=== PATIENT | male | born 1975 | race African-American/Black ===

== ENCOUNTER → 2019-04-23 | Outpatient (CLI) | payer OTHER ==
[~2019-04-23] MED LIST: ASPI-891 PO; ATOR40TA69 PO; FURO20TA6 PO; LISI10TA7 PO; METO25 PO; OMEP40CA37 PO
== END | disposition home or self-care (01) ==
LOC: RAH 10:22
PROVIDERS: ATTEND Internal Medicine Cardiovascular Disease
DX: I11.9 Hypertensive heart disease without heart failure (principal); I31.3 Pericardial effusion (noninflammatory)
CPT/HCPCS: 93306

== ENCOUNTER 2023-05-18 15:50 | Inpatient (IN) | payer OTHER ==
[~2023-05-18] VITALS: Ht 177.8 cm; Wt 125.6 kg
[~2023-05-18 15:50] MED LIST changes: +LISI10TA24 PO; -LISI10TA7 PO; +OMEP40CA21 PO; -OMEP40CA37 PO
[2023-05-18 16:30] VITALS: BP 130/76; PULSE 95; RESP 18
[2023-05-18] MEDS ORDERED: NITROGLYCERIN 0.4 MG SL TAB SL PRN (16:30)
[2023-05-18] MEDS ORDERED: ACETAMINOPHEN 500 MG TABLET PO PRN (17:00)
[2023-05-18 17:31] LABS: BASOPHILS # (AUTO) 0.07 K/uL (0.00-0.20); BASOPHILS % (AUTO) 0.7 % (0.0-5.0); EOSINOPHILS # (AUTO) 0.03 K/uL (0.00-0.70); EOSINOPHILS % (AUTO) 0.3 % (0.0-8.0); HEMATOCRIT 36.3 % (42-54); IMMATURE GRANULOCYTE ABSOLUTE 0.02 K/uL (0-1); LYMPHOCYTES # (AUTO) 2.2 K/uL (1.0-4.8); LYMPHOCYTES % (AUTO) 22.5 % (21.0-51.0); MEAN CORPUSCULAR HEMOGLOBIN 20.5 pg (27.0-33.0); MEAN CORPUSCULAR HGB CONC 28.1 g/dL (32.0-36.0); MEAN CORPUSCULAR VOLUME 72.9 fL (79-99); MONOCYTES # (AUTO) 0.6 K/uL (0.1-1.0); MONOCYTES % (AUTO) 6.6 % (3.0-13.0); NEUTROPHILS # (AUTO) 6.8 K/uL (1.8-7.7); NEUTROPHILS % (AUTO) 69.7 % (40.0-77.0); PLATELET COUNT (AUTO) 273 K/uL (130-400); RED BLOOD CELL COUNT(AUTO) 4.98 MIL/uL (4.50-6.20); RED CELL DISTRIBUTION WIDTH 16.9 % (11.0-15.5); WHITE BLOOD COUNT (AUTO) 9.7 K/uL (4.8-10.8)
[2023-05-18 17:45] LABS: PROTHROMBIN TIME 11.6 SEC (9.6-11.6)
[2023-05-18 17:46] LABS: PARTIAL THROMBOPLASTIN TIME 27.1 SEC (26.3-35.5)
[2023-05-18 17:54] LABS: ALBUMIN 3.5 g/dL (3.5-5.0); BILIRUBIN,TOTAL 0.6 mg/dL (0.2-1.0); CREATININE 1.4 mg/dL (0.5-1.5); MAGNESIUM 2.1 mg/dL (1.80-2.40); POTASSIUM 3.6 mmol/L (3.5-5.1); TOTAL PROTEIN, SERUM 7.3 g/dL (6.0-8.3)
[2023-05-18 19:59] VITALS: BP 144/77; PULSE 80; RESP 18
[2023-05-18 20:03] VITALS: O2SAT 99
[2023-05-18] MEDS: FAMOTIDINE 20MG VIAL IV SCH (20:29)
[2023-05-18 23:13] VITALS: BP 130/74; PULSE 72; RESP 20
[2023-05-19] VITALS (13 sets, daily range): BP systolic 117–154; BP diastolic 59–87; PULSE 68–97; RESP 18–20; O2SAT 96–98
[2023-05-19 05:42] LABS: BASOPHILS # (AUTO) 0.06 K/uL (0.00-0.20); BASOPHILS % (AUTO) 0.8 % (0.0-5.0); EOSINOPHILS # (AUTO) 0.13 K/uL (0.00-0.70); EOSINOPHILS % (AUTO) 1.7 % (0.0-8.0); HEMATOCRIT 35.8 % (42-54); IMMATURE GRANULOCYTE ABSOLUTE 0.03 K/uL (0-1); LYMPHOCYTES # (AUTO) 2.4 K/uL (1.0-4.8); MEAN CORPUSCULAR HEMOGLOBIN 20.5 pg (27.0-33.0); MEAN CORPUSCULAR HGB CONC 28.2 g/dL (32.0-36.0); MEAN CORPUSCULAR VOLUME 72.6 fL (79-99); MONOCYTES # (AUTO) 0.7 K/uL (0.1-1.0); NEUTROPHILS # (AUTO) 4.3 K/uL (1.8-7.7); NEUTROPHILS % (AUTO) 57.1 % (40.0-77.0); PLATELET COUNT (AUTO) 244 K/uL (130-400); RED BLOOD CELL COUNT(AUTO) 4.93 MIL/uL (4.50-6.20); WHITE BLOOD COUNT (AUTO) 7.6 K/uL (4.8-10.8)
[2023-05-19 05:48] LABS: INR 0.97 (0.85-1.15); PROTHROMBIN TIME 11.3 SEC (9.6-11.6)
[2023-05-19 05:56] LABS: CREATININE 1.3 mg/dL (0.5-1.5); POTASSIUM 3.6 mmol/L (3.5-5.1)
[2023-05-19] MEDS ORDERED: MIDAZOLAM HCL 1 MG/ML 2ML VIAL ONE ×2 (08:12→09:15)
[2023-05-19] MEDS ORDERED: FENTANYL CITRATE PF 50 MCG/1 ML 2ML VIAL ONE (08:12)
[2023-05-19] MEDS ORDERED: LIDOCAINE HCL 400MG/20ML VIAL ONE (08:12)
[2023-05-19] MEDS ORDERED: IOHEXOL 350 MG/ML 100ML INFUS..BTL IV ONE (08:12)
[2023-05-19] MEDS ORDERED: VERAPAMIL HCL 2.5 MG/ML VIAL ONE (08:13)
[2023-05-19] MEDS ORDERED: NITROGLYCERIN 50MG VIAL ONE (08:13)
[2023-05-19] MEDS ORDERED: HEPARIN 10,000 UNIT/10ML (1,000 UNIT/ML) VIAL ONE (08:13)
[2023-05-19] MEDS: ASPIRIN 81MG CHEW TAB PO SCH ×2 (08:16→08:33)
[2023-05-19] MEDS ORDERED: SOLU-MEDROL 125MG VIAL ONE (08:24)
[2023-05-19] MEDS ORDERED: DiphenhydrAMINE HCL 50 MG/ML VIAL ONE (08:24)
[2023-05-19] MEDS: CLOPIDOGREL 75MG TAB PO SCH (08:31)
[2023-05-19] MEDS: METOPROLOL SUCCINATE 25 MG TAB.SR.24H PO SCH (08:32)
[2023-05-19] MEDS: ENOXAPARIN SODIUM 80 MG/0.8 ML SQ SCH ×2 (08:36→21:06)
[2023-05-19] MEDS ORDERED: IOHEXOL-350 75 ML VIAL IV ONE (10:00)
[2023-05-19] MEDS ORDERED: IOHEXOL-350 50ML VIAL IV ONE (10:20)
[2023-05-19] MEDS ORDERED: HYDRALAZINE 20MG/ML VIAL ONE (10:28)
[2023-05-19] MEDS ORDERED: GLUCAGON 1MG KIT 1 MG ML IM PRN (11:00)
[2023-05-19] MEDS ORDERED: 0.9%NACL 1000ML 1,000 ML IV SCH (11:00)
[2023-05-19] MEDS ORDERED: DEXTROSE 50%-WATER 50 ML DISP.SYRIN IV PRN (11:00)
[2023-05-19] MEDS: FAMOTIDINE 20MG VIAL IV SCH ×2 (11:24→21:01)
[2023-05-20] VITALS (8 sets, daily range): BP systolic 95–131; BP diastolic 62–68; PULSE 81–103; RESP 20–24; O2SAT 97
[2023-05-20] MEDS ORDERED: SOLU-MEDROL 125MG VIAL IVP ONE (07:00)
[2023-05-20] MEDS ORDERED: DiphenhydrAMINE HCL 50 MG/ML VIAL IV ONE (07:00)
[2023-05-20 08:14] LABS: HEMATOCRIT 34.8 % (42-54); MEAN CORPUSCULAR HEMOGLOBIN 20.6 pg (27.0-33.0); MEAN CORPUSCULAR HGB CONC 28.7 g/dL (32.0-36.0); MEAN CORPUSCULAR VOLUME 71.6 fL (79-99); RED BLOOD CELL COUNT(AUTO) 4.86 MIL/uL (4.50-6.20); WHITE BLOOD COUNT (AUTO) 17.6 K/uL (4.8-10.8)
[2023-05-20 08:30] LABS: ALBUMIN 3.2 g/dL (3.5-5.0); BILIRUBIN,TOTAL 0.4 mg/dL (0.2-1.0); CREATININE 1.2 mg/dL (0.5-1.5); POTASSIUM 3.7 mmol/L (3.5-5.1); TOTAL PROTEIN, SERUM 7.1 g/dL (6.0-8.3)
[2023-05-20] MEDS: METOPROLOL SUCCINATE 25 MG TAB.SR.24H PO SCH (09:25)
[2023-05-20] MEDS: ASPIRIN 81MG CHEW TAB PO SCH (09:26)
[2023-05-20] MEDS: CLOPIDOGREL 75MG TAB PO SCH (09:26)
[2023-05-20] MEDS: ENOXAPARIN SODIUM 80 MG/0.8 ML SQ SCH ×2 (09:27→20:51)
[2023-05-20] MEDS: FAMOTIDINE 20MG VIAL IV SCH ×2 (09:27→20:48)
[2023-05-20] MEDS ORDERED: IOHEXOL 350 MG/ML 100ML INFUS..BTL IV ONE (10:47)
[2023-05-20] MEDS ORDERED: METOPROLOL TARTRATE 1 MG/ML 5ML VIAL IV ONE (11:15)
[2023-05-20 16:23] LABS: APPEARANCE,URINE CLEAR (CLEAR); BILIRUBIN,URINE NEGATIVE (NEGATIVE); COLOR,URINE LIGHT-YELLOW (YELLOW); GLUCOSE, URINE (UA) 30 mg/dL (NEGATIVE); KETONES,URINE NEGATIVE (NEGATIVE); LEUKOCYTE ESTERASE ,URINE NEGATIVE Leu/uL (NEGATIVE); NITRATE,URINE NEGATIVE (NEGATIVE); OCCULT BLOOD,URINE NEGATIVE (NEGATIVE); PROTEIN,URINE 30 mg/dL (NEGATIVE); UROBILINOGEN,URINE 0.2 mg/dL (0.2-1.0)
[2023-05-20 16:27] LABS: ADD UA MICROSCOPIC YES; AMPHET/METH SCREEN,URINE NEGATIVE (NEGATIVE); BARBITURATE SCREEN, URINE NEGATIVE (NEGATIVE); BENZODIAZEPINES SCREEN,URINE POSITIVE (NEGATIVE); CANNABINOID SCREEN,URINE NEGATIVE (NEGATIVE); COCAINE SCREEN,URINE NEGATIVE (NEGATIVE); OPIATE SCREEN,URINE NEGATIVE (NEGATIVE); PHENCYCLIDINE SCREEN,URINE NEGATIVE (NEGATIVE)
[2023-05-20 17:00] LABS: RBC,URINE 0-1 /HPF (0-1); SQUAMOUS EPITHELIAL CELL,UR RARE /HPF (0-2); WBC,URINE 0-1 /HPF (0-1)
[2023-05-20] MEDS: CEFTRIAXONE 1G VIAL IVPB SCH (20:51)
[2023-05-20] MEDS: MORPHINE 2 MG SYG IVP PRN (20:58)
[2023-05-21] VITALS (15 sets, daily range): BP systolic 103–160; BP diastolic 44–95; PULSE 65–83; RESP 20; O2SAT 97
[2023-05-21 03:48] LABS: HEMATOCRIT 34.4 % (42-54); MEAN CORPUSCULAR HEMOGLOBIN 20.3 pg (27.0-33.0); MEAN CORPUSCULAR HGB CONC 27.9 g/dL (32.0-36.0); MEAN CORPUSCULAR VOLUME 72.6 fL (79-99); RED BLOOD CELL COUNT(AUTO) 4.74 MIL/uL (4.50-6.20); WHITE BLOOD COUNT (AUTO) 20.7 K/uL (4.8-10.8)
[2023-05-21 04:02] LABS: CREATININE 1.3 mg/dL (0.5-1.5); MAGNESIUM 2.2 mg/dL (1.80-2.40); POTASSIUM 3.7 mmol/L (3.5-5.1)
[2023-05-21] MEDS: METOPROLOL SUCCINATE 25 MG TAB.SR.24H PO SCH (07:59)
[2023-05-21 09:23] LABS: % IRON SATURATION 2.8 % (30-44)
[2023-05-21] MEDS ORDERED: COMPOUND IV REFRIGERATED 1 EACH IVSOLN MISC PRN (09:30)
[2023-05-21] MEDS ORDERED: COMPOUND IV MISC 1 EACH IVSOLN MISC PRN (09:30)
[2023-05-21 09:57] LABS: HEMOGLOBIN A1C 6.6 % (4.0-6.0)
[2023-05-21] MEDS: IRON SUCROSE COMPLEX 300 MG in 0.9% NACL 250ML 250 ML IV SCH (10:53)
[2023-05-21] MEDS ORDERED: DiphenhydrAMINE HCL 50 MG/ML VIAL IV ONE (11:00)
[2023-05-21] MEDS: FAMOTIDINE 20MG VIAL IV SCH (11:00)
[2023-05-21] MEDS ORDERED: SOLU-MEDROL 125MG VIAL IVP ONE (11:00)
[2023-05-21] MEDS ORDERED: FAMOTIDINE 20MG VIAL IV ONE (12:00)
[2023-05-21] MEDS ORDERED: LIDOCAINE HCL 400MG/20ML VIAL ONE (13:32)
[2023-05-21] MEDS ORDERED: FENTANYL CITRATE PF 50 MCG/1 ML 2ML VIAL ONE ×2 (13:32→16:04)
[2023-05-21] MEDS ORDERED: BIVALIRUDIN 250 MG/VIAL IV ONE (13:32)
[2023-05-21] MEDS ORDERED: MIDAZOLAM HCL 1 MG/ML 2ML VIAL ONE (13:33)
[2023-05-21] MEDS ORDERED: NITROGLYCERIN 50MG VIAL ONE (13:33)
[2023-05-21] MEDS ORDERED: HEPARIN 10,000 UNIT/10ML (1,000 UNIT/ML) VIAL ONE (13:33)
[2023-05-21] MEDS ORDERED: IOHEXOL 350 MG/ML 100ML INFUS..BTL IV ONE ×2 (13:33→15:30)
[2023-05-21] MEDS ORDERED: 0.9%NACL 1000ML 1,000 ML IV SCH (16:30)
[2023-05-21] MEDS: ASPIRIN 81MG CHEW TAB PO SCH (17:18)
[2023-05-21] MEDS: CLOPIDOGREL 75MG TAB PO SCH (17:18)
[2023-05-21] MEDS: CEFTRIAXONE 1G VIAL IVPB SCH (17:18)
[2023-05-21] MEDS: MORPHINE 2 MG SYG IVP PRN (17:20)
[2023-05-22 03:45] VITALS: BP 148/79; PULSE 77; RESP 21
[2023-05-22 05:12] LABS: HEMATOCRIT 33.3 % (42-54); MEAN CORPUSCULAR HEMOGLOBIN 20.4 pg (27.0-33.0); MEAN CORPUSCULAR HGB CONC 28.2 g/dL (32.0-36.0); MEAN CORPUSCULAR VOLUME 72.4 fL (79-99); NUCLEATED RED BLOOD CELLS 0.5 % (0.0-0.19); RED BLOOD CELL COUNT(AUTO) 4.6 MIL/uL (4.50-6.20); RED CELL DISTRIBUTION WIDTH 17.1 % (11.0-15.5); WHITE BLOOD COUNT (AUTO) 17.6 K/uL (4.8-10.8)
[2023-05-22 05:32] LABS: ALBUMIN 2.9 g/dL (3.5-5.0); BILIRUBIN,TOTAL 0.2 mg/dL (0.2-1.0); CREATININE 1.2 mg/dL (0.5-1.5); POTASSIUM 3.8 mmol/L (3.5-5.1); TOTAL PROTEIN, SERUM 6.7 g/dL (6.0-8.3)
[2023-05-22 07:00] VITALS: O2SAT 98
[2023-05-22 08:13] VITALS: BP 109/62; PULSE 94; RESP 20
[2023-05-22] MEDS: IRON SUCROSE COMPLEX 300 MG in 0.9% NACL 250ML 250 ML IV SCH (08:54)
[2023-05-22] MEDS: ASPIRIN 81MG CHEW TAB PO SCH (08:55)
[2023-05-22] MEDS: METOPROLOL SUCCINATE 25 MG TAB.SR.24H PO SCH (08:55)
[2023-05-22] MEDS: CLOPIDOGREL 75MG TAB PO SCH (08:55)
[2023-05-22] MEDS: CEFTRIAXONE 1G VIAL IVPB SCH (08:57)
[2023-05-22] MEDS ORDERED: PANTOPRAZOLE 40 MG TAB DR PO SCH (09:00)
[2023-05-22] MEDS ORDERED: CLOP-31 PO (09:45)
[2023-05-22] MEDS ORDERED: RANO500T2 PO (09:45)
[2023-05-22] MEDS ORDERED: FE F1CAP33 PO (09:45)
[2023-05-22] MEDS ORDERED: AEC81 PO (09:45)
[2023-05-22] MEDS ORDERED: METO-391 PO (09:45)
[2023-05-22] MEDS ORDERED: ISOS60TA77 PO (09:45)
[2023-05-22 12:17] VITALS: BP 124/61; PULSE 69; RESP 20
== END 2023-05-22 15:35 | disposition home or self-care (01) | DRG 281 ==
LOC: 2AH 16:05
PROVIDERS: ADMIT Internal Medicine; ATTEND Internal Medicine
PROC: 4A023N7 Measurement of Cardiac Sampling and Pressure, Left Heart, Percutaneous Approach (ICD-10-PCS; principal; 2023-05-19)
PROC: B2111ZZ Fluoroscopy of Multiple Coronary Arteries using Low Osmolar Contrast (ICD-10-PCS; 2023-05-19)
PROC: B2151ZZ Fluoroscopy of Left Heart using Low Osmolar Contrast (ICD-10-PCS; 2023-05-19)
PROC: B5161ZZ Fluoroscopy of Right Subclavian Vein using Low Osmolar Contrast (ICD-10-PCS; 2023-05-19)
PROC: B41F1ZZ Fluoroscopy of Right Lower Extremity Arteries using Low Osmolar Contrast (ICD-10-PCS; 2023-05-19)
PROC: 4A023N7 Measurement of Cardiac Sampling and Pressure, Left Heart, Percutaneous Approach (ICD-10-PCS; 2023-05-21)
PROC: B2111ZZ Fluoroscopy of Multiple Coronary Arteries using Low Osmolar Contrast (ICD-10-PCS; 2023-05-21)
DX: I21.4 Non-ST elevation (NSTEMI) myocardial infarction (principal); N39.0 Urinary tract infection, site not specified; Q24.5 Malformation of coronary vessels; D50.9 Iron deficiency anemia, unspecified; I11.9 Hypertensive heart disease without heart failure; I25.10 Atherosclerotic heart disease of native coronary artery without angina pectoris; E66.01 Morbid (severe) obesity due to excess calories; Z68.39 Body mass index [BMI] 39.0-39.9, adult; Z91.013 Allergy to seafood; E78.5 Hyperlipidemia, unspecified; Z79.02 Long term (current) use of antithrombotics/antiplatelets; Z79.82 Long term (current) use of aspirin
CPT/HCPCS: 36415; 71045; 75574; 80048; 80053; 80061; 80305; 81001; 82306; 82728; 83036; 83540; 83550; 83735; 84484; 85025; 85027; 85610; 85730; 93005; 93306; 93356; 93454; 93458; 99156; 99157; C1760; C1887; C1894; G0378; J0360; J0583; J0696; J1200; J1644; J1650; J1756; J2250; J2270; J2930; J3010; J3490; J7050; Q9967; A4649; C1769; Q9965